=== PATIENT | male | born 1980 | race Caucasian/White ===

== ENCOUNTER 2022-12-26 08:19 | Outpatient (CLI) | payer BC, SELFPAY | END 2022-12-26 08:20 | disposition home or self-care (01) | PROVIDERS: PCP Family Medicine; Visit Provider Family Medicine | DX: Z00.00 Encounter for general adult medical examination without abnormal findings (principal); Z13.6 Encounter for screening for cardiovascular disorders; Z12.5 Encounter for screening for malignant neoplasm of prostate; Z11.59 Encounter for screening for other viral diseases | CPT/HCPCS: 80053; 80061; 84153; 86803 ==

== ENCOUNTER 2023-01-20 20:52 | Outpatient (CLI) | payer BC, SELFPAY ==
--- NOTE | 2023-01-27 08:35 | W.PM.SLEEP ---
Sleep Study Details Details Interpreting Provider: James Date of Sleep Study: 01/20/23 Sleep Study Details: STUDY TYPE:? Hospital-based without CPAP titration ? BMI:? 33 ORDERING PROVIDER:Cortez Velasquez INDICATION:? Concerns about sleep apnea ? SLEEP SUMMARY:? Total sleep time 393.5 minutes, efficiency 92.9, arousal index 20.7 RESPIRATORY SUMMARY:? Mean oxygen awake 94, asleep 94, minimum 88. 0.3 minutes oxygen between 80 and 88% AHI 17.4, RDI 20.1. Supine AHI 22.6 Nonsupine AHI 7.8. With supine REM AHI 38.1 PERIODIC LIMB MOVEMENTS OF SLEEP:? None were noted CARDIAC:? Awake 63, asleep 54 no arrhythmias noted IMPRESSION:? Moderate obstructive sleep apnea with supine position and REM dependency RECOMMENDATION: Treatment options include AutoSet CPAP pressure 4-17, dental appliance and/or airway expansion surgery.
== END 2023-01-20 20:53 | disposition home or self-care (01) ==
LOC: SLEEP 20:55
PROVIDERS: PCP Family Medicine; Visit Provider Family Medicine
DX: G47.33 Obstructive sleep apnea (adult) (pediatric) (principal)
CPT/HCPCS: 95810

== ENCOUNTER 2025-03-16 15:00 | Outpatient (CLI) | payer BC, SELFPAY | END 2025-03-16 15:01 | disposition home or self-care (01) | LOC: NFLDREF 03-21 08:24 | PROVIDERS: PCP Family Medicine; Referring Provider Family Medicine; Visit Provider Family Medicine | DX: Z13.6 Encounter for screening for cardiovascular disorders (principal); Z80.42 Family history of malignant neoplasm of prostate | CPT/HCPCS: 80053; 80061; G0103 ==